=== PATIENT | female | born 1995 | race Two or more races ===

== ENCOUNTER 2017-08-06 00:14 | Emergency (ER) | payer SELFPAY ==
[~2017-08-06] VITALS: Ht 170.2 cm; Wt 49.9 kg
[~2017-08-06 00:14] MED LIST: CEFD300C37 PO; CIPR500T87 PO; HYDR-3240 PO; ONDA4TAB13 SL
[2017-08-06] MEDS ORDERED: SODIUM CHLORIDE FLUSH 10ML SYR IVF ONE (01:00)
[2017-08-06] MEDS ORDERED: SODIUM CHLORIDE 0.9% 1,000ML IVBOLUS ONE (01:00)
[2017-08-06 01:03] LABS: HEMATOCRIT 41.6 % (34.6-47.8); HEMOGLOBIN 14.1 g/dL (11.7-16.4); WHITE BLOOD COUNT 6.6 x10^3/uL (3.4-10)
[2017-08-06 01:15] LABS: ASPARTATE AMINO TRANSFERASE 19 U/L (15-37); BLOOD UREA NITROGEN 10 mg/dL (7-18)
[2017-08-06 03:11] VITALS: BP 98/45
== END 2017-08-06 03:14 | disposition home or self-care (01) ==
LOC: ED 01:42
DX: F10.129 Alcohol abuse with intoxication, unspecified (principal)
CPT/HCPCS: 36415; 80053; 83690; 85025; 96360; 99284; J7030